=== PATIENT | male | born 1945 | race Caucasian/White ===

== ENCOUNTER 2016-06-02 16:26 | Inpatient (IN) | payer MEDICARE, OTHER ==
--- NOTE | ~2016-06-02 | HP ---
History And Physical [place] [id number] [facility] [place]. [address] NAME: MARINE VALDES JR : 49 STATUS : ADM IN [facility]#: [id number] AGE: 71 ADM/REG DATE : 06/02/16 MR#: [id number] REPORT SERV DATE: 06/03/16 DICTATED BY: ELLEN BECERRIL DATE: 06/02/16 REPORT STATUS : Draft TRANSCRIBED BY: MODTorey DATE: 06/02/16 DATE OF ADMISSION: 06/02/2016 REASON FOR ADMISSION: MRSA bacteremia stump wound infection. HISTORY OF PRESENT ILLNESS: Mr. Valdes is a 71-year-old male with bilateral [id number]-[id number] amputation and type 2 diabetes, status post hospitalization at [facility] beginning of 05/28/2016 for hip fracture for falling from his wheelchair. The patient underwent open reduction, internal fixation and did well; however, he is noted to have infected stump wound and blood cultures were positive for MRSA as well as wound cultures. The patient has been on intravenous antibiotics, but he was transferred here for infectious disease consultation. The patient actually denies any subjective fevers. He has fatigue and some hip pain, but no pain in his stumps, no pain anywhere else. No headache. No altered mental status. No chest or palpitations. No shortness of breath, coughing, or wheezing. Appetite has been okay without nausea or vomiting. No gastrointestinal or genitourinary complaints. He did have numbness in his legs prior to amputation. He has had diabetes for 23 years, but he says it has recently been under pretty good control. REVIEW OF SYSTEMS: Remainder of review of systems are negative. PAST MEDICAL HISTORY: As mentioned above, history of coronary artery disease. MEDICATIONS: Include Coreg, Bentyl, Levemir, nitroglycerin, Uroxatral, aspirin, Plavix, Cymbalta, Lunesta, Lyrica, and Ranexa. ALLERGIES: NO ALLERGIES. FAMILY HISTORY: Negative for diabetes. SOCIAL HISTORY: The patient has no tobacco, alcohol, or drug history. He lives alone. PHYSICAL EXAMINATION: VITAL SIGNS: Blood pressure 117/65, pulse 69, afebrile, and with good saturations. GENERAL: Comfortable white male, oriented x3. No apparent distress. HEENT: Pupils are equal and reactive to light. Extraocular movements are intact. No cranial nerve deficits. Moist mucous membranes. Normal oropharynx. NECK: Revealed no jugular distention carotid bruits, lymphadenopathy, or goiter. CARDIAC: Regular rate and rhythm. No murmurs, gallops, or rubs identified. LUNGS: Clear to auscultation bilaterally. Good excursion. ABDOMEN: Nondistended, nontender, obese. Bowel sounds normoactive. EXTREMITIES: No cyanosis, clubbing, or edema. He had bilateral BKA. He had open wounds in the left stump without purulent drainage but with some thin yellow exudate, and a small wound was also present on the right stump. There was no associated cellulitis, fluctuance, or warmth. NEUROLOGIC: He did have some thenar and adductor wasting of his hands with associated History And Physical [address] [address] NAME: MARINE VALDES JR : 49 STATUS : ADM IN [facility]#: [id number] AGE: 71 ADM/REG DATE : 06/02/16 MR#: [id number] REPORT SERV DATE: 06/03/16 DICTATED BY: ELLEN BECERRIL DATE: 06/02/16 REPORT STATUS : Draft TRANSCRIBED BY: LUKE DATE: 06/02/16 neuropathy in his fingers as well but normal strength proximally. PSYCHIATRIC: He is appropriate. LABORATORY DATA: Laboratory evaluation was not sent from [facility]. ASSESSMENT AND PLAN: 1. Methicillin-resistant staphylococcus aureus bacteremia after stump wound infection, certainly this is concerning for the possibility of infected hardware. We should rule out infective endocarditis. Resume vancomycin here for at least two weeks although possible six-week of therapy. Infectious Disease will be seeing this patient. A PICC line will be placed. Anticipate half-way Facility, particularly in light that he will not be able to have his prosthetic limbs replaced with the open wounds on his limbs. 2. Type 2 diabetes, unclear how well controlled this is. We will check an A1c and reinitiate his Levemir, but basal bolus dosing may be necessary. 3. History of coronary artery disease. Continue on Plavix, aspirin. Lipitor or lipid- lowering therapy is missing from his regimen. We will assess his lipid profile as well. STEVEN/LUKE Ellen Becerril M.D. / [id number] CC: Ellen Becerril M.D. UNKNOWN
--- NOTE | ~2016-06-02 | IDS ---
Interim Discharge Summary [facility] [address] [place]. [address] NAME: MARINE FUENTES JR : 49 STATUS : ADM IN [facility]#: [id number] AGE: 71 ADM/REG DATE : 06/02/16 MR#: [id number] REPORT SERV DATE: 06/07/16 DICTATED BY: JOEL SWAIN DATE: 06/07/16 REPORT STATUS : Draft TRANSCRIBED BY: LUKE DATE: 06/07/16 ADMISSION DATE: 06/02/2016 DISCHARGE DATE: REASON FOR ADMISSION: MRSA bacteremia, transfer from [facility]. HISTORY OF PRESENT ILLNESS: This is a 71-year-old male, who had come in to [facility] and found to have MRSA bacteremia, it was presumed to be from bacteremia from his stump wounds and infections as he has bilateral lower extremity below the knee amputations. However, he also found that he had infected wounds on his middle and ring finger of the right hand. DISCHARGE DIAGNOSES: 1. Methicillin-resistant Staphylococcus aureus bacteremia, possibly secondary to infected fingers. 2. Right middle and ring finger infection, status post I and D and resection and amputation of finger tips. 3. Diabetes type 2 with severe neuropathy. 4. Coronary artery disease and chronic congestive heart failure. 5. Hypertension. 6. Status post recent hip fracture repair. 7. History of bilateral lower extremity amputations with stump wounds present on admission. HOSPITAL COURSE: MRSA bacteremia. The patient was admitted and Infectious Disease was consulted. Dr. Mckeon will see the patient and consult would be made to hand specialist, Dr. Benton Sandoval, he would perform surgery on Mr. Fuentes, doing an I and D of the right middle and ring finger with partial tip amputation of the right ring finger due to concerns for osteomyelitis. The patient has been on IV vancomycin here at the hospital. Dr. Mckeon is following. There was not a culture for the fingers to verify that being the source of infection. Given the fact that is not definitive that absolutely the source of the infection, although it is likely there is a ANNE MARIE pending for tomorrow. Stump wounds. The patient also has bilateral lower extremity stump wounds present on admission. They do not appear infected. The patient will need a PICC line placed and outpatient IV antibiotics and he is wanting now to go home with home health to complete that. CURRENT MEDICATIONS: 1. Aspirin 81 mg p.o. daily. 2. Atorvastatin 80 mg p.o. daily. 3. Benazepril 10 mg p.o. daily. 4. Carvedilol 6.25 mg p.o. b.i.d. 5. Plavix 75 mg p.o. daily. 6. Duloxetine 60 mg p.o. b.i.d. 7. Enoxaparin 40 mg p.o. x300 subcu daily. Interim Discharge Summary [address] [place]. [address] NAME: MARINE FUENTES JR : 49 STATUS : ADM IN PAT#: [id number] AGE: 71 ADM/REG DATE : 06/02/16 MR#: [id number] REPORT SERV DATE: 06/07/16 DICTATED BY: JOEL SWAIN DATE: 06/07/16 REPORT STATUS : Draft TRANSCRIBED BY: LUKE DATE: 06/07/16 8. Fluticasone nasal spray. 9. NovoLog 5 units subcu before meals t.i.d. 10.Sliding scale insulin level 1. 11.Levemir 18 units subcu b.i.d. 12.Pregabalin 150 mg p.o. b.i.d. 13.Ranolazine 1000 mg p.o. b.i.d. 14.Carafate 1 g p.o. before meals and at bedtime. 15.Tamsulosin 0.4 mg p.o. daily. 16.Vancomycin 1 g IV q.12 hours. CURRENT PLAN: ANNE MARIE is pending. Follow up will need to be made on that and PICC line will need to be inserted and arrangements made for outpatient IV antibiotic. Case Management is working on this. The patient's care to be assumed by Dr. Mike Torres. ASAF/IRVINGL Joel Swain APN / [id number] CC: Gold Grover M.D. Benton Sandoval M.D. Valente Mckeon M.D. Francisco Torres, DO
--- NOTE | ~2016-06-02 | CN ---
Consultation Report [facility] [address] [place]. [address] NAME: MARINE FUENTES JR : 49 STATUS : ADM IN [facility]#: [id number] AGE: 71 ADM/REG DATE : 06/02/16 MR#: [id number] REPORT SERV DATE: 06/03/16 DICTATED BY: COLTEN SANDOVAL DATE: 06/03/16 REPORT STATUS : Draft TRANSCRIBED BY: MODL DATE: 06/03/16 ORTHOPEDIC HAND CONSULTATION DATE OF CONSULTATION: 06/03/2016 REASON FOR CONSULTATION: Right middle and ring finger infections. HISTORY OF PRESENT ILLNESS: Mr. Fuentes is a 71-year-old diabetic gentleman, admitted with MRSA bacteremia, actually transferred from [facility] with history of bilateral lower extremity amputations and recently had a hip fracture, was treated with ORIF by Dr. Gil. He was evaluated by ID and there was some concern regarding his fingertips. Per his own history, he says two months ago, he burned his middle and ring finger on a stove and due to the history of neuropathy has very little feeling in his hands and has been treating it with observation or at best, on wound care. Denies any other injuries or trauma to his hands. PAST MEDICAL HISTORY: As above and significant for coronary artery disease. ALLERGIES: NO KNOWN DRUG ALLERGIES. MEDICATIONS: Please see the list. REVIEW OF SYSTEMS: Negative except as above. PHYSICAL EXAMINATION: GENERAL: Patient is resting comfortably in a hospital bed. EXTREMITIES: Examination of his left upper extremity is unremarkable. No erythema, ecchymosis, swelling, or deformity. No tenderness, although light touch sensation is intact in his fingers. Mild claw posture about his hands consistent with a neuropathy, but he can extend them fairly well and flex. Examination of his right upper extremity, the upper arm, shoulder, elbow, and forearm are benign. Examination of his hand significantly clawed posture with more fixed contractures about the IP joints and very limited extension. He has a small abrasion on the radial aspect of the tip of his middle finger, does not appear to be deep. There is some scant serous drainage. Again, light sensation and tenderness essentially void due to the neuropathy. On the ring finger, he has a 1 x 1 cm open wound dorsally with exposed soft tissue. There was no gross purulence, but there is some serous drainage and again appears to be communicating with the deep tissues. The remainder of his digit is red and swollen. ASSESSMENT AND PLAN: This is a 71-year-old with right middle and ring finger amputations with history of diabetes and current history of methicillin-resistant Staphylococcus aureus bacteremia. Reviewed the diagnosis and treatment plan with the patient at this point. I feel the ring finger will require formal I and D with partial amputation and flap closure. Did discuss with them that at the time surgery should it reveal further infection or Consultation Report [place] [id number] [place]. [address] NAME: MARINE FUENTES JR : 49 STATUS : ADM IN PAT#: [id number] AGE: 71 ADM/REG DATE : 06/02/16 MR#: [id number] REPORT SERV DATE: 06/03/16 DICTATED BY: COLTEN SANDOVAL DATE: 06/03/16 REPORT STATUS : Draft TRANSCRIBED BY: LUKE DATE: 06/03/16 breakdown or significant osteomyelitis, it may require further amputation. Even at best, this may require further surgeries in the future especially given his medical comorbidities. We will also I and D the middle finger at the same time. I do not believe it requires much attention, however, discussed with him in detail regarding risks, benefits, and alternatives. Questions were answered to his satisfaction. Planned to do this at the next possible convenience, n.p.o. after midnight. The dressing was replaced, and we plan to do this tomorrow. RAMIRO/LUKE Colten Sandoval M.D. / [id number] CC: Gold Grover M.D.
--- NOTE | ~2016-06-02 | OP ---
Record Of Operation [facility] [address] [place]. [address] NAME: MARINE FUENTES JR : 49 STATUS : ADM IN PAT#: [id number] AGE: 71 ADM/REG DATE : 06/02/16 MR#: [id number] REPORT SERV DATE: 06/07/16 DICTATED BY: COLTEN JUSTICE DATE: 06/04/16 REPORT STATUS : Draft TRANSCRIBED BY: MODL DATE: 06/04/16 DATE OF PROCEDURE: 06/04/2016 PREOPERATIVE DIAGNOSIS: Right middle and ring finger infections. POSTOPERATIVE DIAGNOSIS: Right middle and ring finger infections. PROCEDURE: Irrigation and debridement of right middle and ring finger with partial tip amputation of the right ring finger. SURGEON: Colten Justice M.D. ANESTHESIA: MAC. COMPLICATIONS: None. ESTIMATED BLOOD LOSS: Minimal. INDICATIONS: Mr. Fuentes is a 71-year-old gentleman who burned his fingers two months ago, history of severe diabetic neuropathy, so he did not feel the injury and it progressed over time to an open draining wound with no coverage and exposed bone. I discussed with him regarding the nature of diagnosis and recommended tip amputation with I and D. Risks and benefits were discussed. DESCRIPTION OF PROCEDURE: The patient was identified in the preoperative area. Informed consent was performed and documented. Surgical site was signed. He was taken back to the operative suite and placed on the table in supine position. MAC anesthesia was administered. Attention was turned to his right upper extremity, it was prepped and draped in a normal sterile fashion. Time-out was performed and documented by . Antibiotics were given, up to date from the chart. Exsanguinated his upper arm and raised the tourniquet to 250 mmHg. I began by using a Adolphus removing the nonviable skin around the edges. The right middle finger essentially was of moderate abrasion and had some intact dermal layers, this was cleaned of any nonviable tissue and then cleansed. I turned attention to the ring finger with exposed bone with loss of the dorsal tissue. Given the extent of the bone and the appearance of the bone and performed a disarticulation at the PIP level with plan to flapping up the volar tissue. I sharply excised and debrided any nonviable skin, subcu or bony tissue using a #15 blade and curved iris scissors. After we fashioned our flap and removed the cartilage and shaped the head of P2 in anticipation for closure copiously irrigated, then I closed the flap with 4-0 Prolene, instilled 0.5% Marcaine plain, placed sterile dressing. Tourniquet was deflated. The patient tolerated the procedure well and he was taken to the recovery room in stable condition. DISCHARGE CONDITION: Satisfactory. DISCHARGE INSTRUCTIONS: The patient will return to the floor. Give IV antibiotics for his bacteremia, plan on keeping the wound wrapped up for the next few days and then we will Record Of [address] [place]. [address] NAME: MARINE FUENTES JR : 49 STATUS : ADM IN [facility]#: [id number] AGE: 71 ADM/REG DATE : 06/02/16 MR#: [id number] REPORT SERV DATE: 06/07/16 DICTATED BY: COLTEN JUSTICE DATE: 06/04/16 REPORT STATUS : Draft TRANSCRIBED BY: LUKE DATE: 06/04/16 check it, work on range of motion as tolerated. RAMIRO/LUKE Colten Justice M.D. / [id number] CC: Gold Grover M.D.
--- NOTE | ~2016-06-02 | TEE ---
Transesophageal Echocardiogram [facility] [address] [facility] [place]. [address] NAME: MARINE VALDES JR : 49 STATUS : ADM IN [facility]#: [id number] AGE: 71 ADM/REG DATE : 06/02/16 MR#: [id number] REPORT SERV DATE: 06/09/16 DICTATED BY: DATE: REPORT STATUS : Draft TRANSCRIBED BY: MODL DATE: 06/09/16 CHIEF COMPLAINT/REASON FOR STUDY: Bacteremia. After obtaining informed consent, Anesthesia administered IV propofol to achieve adequate conscious sedation. The transesophageal probe was easily inserted without complication. Then, 2D echocardiographic windows were obtained including color and spectral Doppler assessment. CHAMBERS: 1. The left ventricle appeared normal in size with normal wall thickness. There was more focal inferior basilar and anterior apical hypokinesis. Estimated visual ejection fraction is 40%. 2. The right ventricle was grossly normal in size and systolic function. 3. The left atrium is dilated in size. 4. The right atrium appeared mildly dilated in size. 5. The left atrial appendage was interrogated at multiple levels and depths. There was no evidence of left atrial appendage thrombus at the time of ANNE MARIE. Doppler velocities within the left atrial appendage measured between 24 and 25 cm/sec. 6. The mitral valve was normal with preserved leaflet motion. There was no evidence of valvular vegetations. There was mild mitral valve regurgitation seen with color and spectral Doppler assessment. 7. The tricuspid valve appeared normal with preserved leaflet motion. There was no evidence of tricuspid regurgitation or significant stenosis seen with color Doppler assessment. 8. Mitral valve appeared normal and trileaflet. There was small fibrinous echo densities at the aortic valve leaflet tips best seen in the long-axis view. These were consistent with Lambl's excrescence and not clearly consistent with valvular vegetations. 9. The pulmonary valve was well visualized without evidence of significant pulmonary valvular regurgitation. There was no evidence of vegetations. 10.The thoracic aorta was normal in size with moderate atherosclerotic plaque visualized. 11.The pericardium was normal without pericardial effusion. 12.The interatrial septum was well visualized and normal without evidence of patent foramen ovale or atrial septal defect. 13.There was no evidence of pulmonary vein flow reversal. IMPRESSION: 1. Moderately decreased left ventricular systolic function with a visually estimated ejection fraction of 40%. 2. No evidence of infective endocarditis. 3. 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 RALPH/LUKE Shawanda Han Transesophageal Echocardiogram [address] [address] NAME: MARINE VALDES JR : 49 STATUS : ADM IN PAT#: [id number] AGE: 71 ADM/REG DATE : 06/02/16 MR#: [id number] REPORT SERV DATE: 06/09/16 DICTATED BY: DATE: REPORT STATUS : Draft TRANSCRIBED BY: LUKE DATE: 06/09/16 Jeremias Tsai / [id number] CC: Francisco Torres DO
--- NOTE | ~2016-06-02 | DS ---
Discharge Summary [facility] [address] [place]. [address] NAME: MARINE VALDES JR : 49 STATUS : DIS IN PAT#: [id number] AGE: 71 ADM/REG DATE : 06/02/16 MR#: [id number] REPORT SERV DATE: 06/11/16 DICTATED BY: SHEYLA CAI DATE: 06/10/16 REPORT STATUS : Draft TRANSCRIBED BY: MODTorey DATE: 06/10/16 ADMISSION DATE: 06/02/2016 DISCHARGE DATE: 06/10/2016 HOSPITAL COURSE: This is a 71-year-old pleasant male. He has known past medical history of CAD, recent hip fracture falling from wheelchair on 05/28/2016, went to [facility], had open reduction and internal fixation. He was noted to have an infected stump wound. Blood culture positive for MRSA as well as a wound culture, known history of diabetes, bilateral [id number]-tywh amputations, possibly due to diabetic complications in the past. The patient was on IV antibiotics at [facility], was transferred as a direct admission with ID consultation request. As a result, the patient was seen by Dr. Mckeon, was noted to have small wounds on both thumbs. Apparently, he had burnt his fingers a few weeks ago on his right hand, noted to have bilateral flexion contractures. The patient as a result regarding his MRSA bacteremia had seen to be negative from the 05/06/2016, but then became positive on 05/29/2016, then leg ulcer had 3+ MRSA and 1+ Proteus. The patient as a result, regarding his right middle finger cellulitis with possible abscesses seen by Dr. Sandoval. I and D, partial amputation, and flap closure, this was done on 06/04/2016. He had an I and D to the right middle and ring finger, partial tip amputation of right ring finger. The patient's bacteremia cleared. Please see prior discharge summary done by Dr. Grover's team with Joel Lee. The patient in summary had a TTE and then a ANNE MARIE to rule out infective endocarditis. EF found to be 40%. Did not find any vegetation, as a result likely source was from his finger, more likely than his stump. True culture was not done, but likely source of infection was removed. When I took over the patient he had a blood pressure of 86, this is relative hypoglycemia at 80, given amp of D50, did much better with a 0.5 L of normal saline bolus. He had a pyuria develop with the Pseudomonas 50,000 units. Gave just 1 dose of tobra per ID, seemed to be asymptomatic. The procal would be negative, but given his clinical change 2 days ago wanted to treat. The patient additionally has been reducing his Levemir, likely more compliant with a diabetic diet while being here. The patient is on backbone therapy regarding his heart failure 40%, ischemic cardiomyopathy, and LVEF of 40%. DISCHARGE MEDICATIONS: Aspirin 81 p.o. daily, Lipitor 80 p.o. daily, benazepril 2.5 p.o. daily, carvedilol 3.125 p.o. b.i.d., Plavix 75 p.o. daily, vancomycin 1.5 g daily for three weeks then discontinue, Cymbalta 60 p.o. b.i.d., Flonase nasal spray, NovoLog level 1 sliding scale as well as having NovoLog 5 units subcu t.i.d. before meals. Lyrica 150 p.o. b.i.d. for diabetic neuropathy. Ranexa 1 g p.o. b.i.d., Florastor one capsule p.o. b.i.d., Carafate, Xenaderm ointment, nystatin powder, has some mild perineal candidiasis, Levemir 10 units subcu daily as well as having Lasix 20 p.o. daily, given his history of heart failure, tramadol 100 p.o. b.i.d., p.r.n., and Ativan 1 mg p.o. b.i.d. p.r.n. FOLLOWUP: Follow up with PCP in 2 weeks. Follow up with Dr. Mckeon as prescribed. Follow up with Dr. Sandoval as prescribed. Wound care was ordered here to do as an outpatient. Discharged to facility via ambulance today. DISCHARGE DIAGNOSES: Methicillin-resistant Staphylococcus aureus bacteremia, likely source Discharge Summary [address] [place]. [address] NAME: MARINE VALDES KENDRICK FARRIS : 49 STATUS : DIS IN PAT#: [id number] AGE: 71 ADM/REG DATE : 06/02/16 MR#: [id number] REPORT SERV DATE: 06/11/16 DICTATED BY: SHEYLA CAI DATE: 06/10/16 REPORT STATUS : Draft TRANSCRIBED BY: MODTorey DATE: 06/10/16 is infected stump as well as his right middle finger, more likely the middle finger with amputation of the right ring finger. Source is likely removed. Gave a longer duration given hardware instrumentation recently placed. Insulin-dependent diabetes, hypertension, coronary artery disease, chronic systolic heart failure, not decompensated, encephalopathy, relative hypoglycemia. All questions were answered, it took well over 30 minutes to do. MARCELLA/LUKE Sheyla Cai DO / [id number] CC: Sheyla Cai DO
--- NOTE | ~2016-06-02 | CN ---
Consultation Report [facility] [address] [place]. [address] NAME: MARINE VALDES JR : 49 STATUS : ADM IN PAT#: [id number] AGE: 71 ADM/REG DATE : 06/02/16 MR#: [id number] REPORT SERV DATE: 06/03/16 DICTATED BY: VALENTE ROSENBERG DATE: 06/03/16 REPORT STATUS : Draft TRANSCRIBED BY: MODL DATE: 06/03/16 INFECTIOUS DISEASE CONSULT DATE OF CONSULTATION: REASON FOR CONSULT: MRSA bacteremia. HISTORY OF PRESENT ILLNESS: This is a 71-year-old white male with diabetes, coronary artery disease, bilateral below-knee amputation who requested to be transferred from [facility] to [facility]. He lives by himself with the help from a home health staff. He had right below-knee amputation ten years ago after an infection. He had a left below-knee amputation I think a year or year and half ago. He reports having falls and injuries to his thumb, so he has small wounds on both thumbs. Recently, he might have received an antibiotic from his PCP. It is not clear if this was from the stump wounds or right hand wounds. Apparently, he burnt his fingers a few weeks ago on the right hand. He has bilateral flexion contractures and he burnt the tips of both index and middle finger. Apparently, he has some neuropathy who did not notice anything. At some point, it sounds like he formed a scab over the middle finger and then a wound. His PCP offered some wound care but at some point, maybe within the last week he developed swelling and redness of the middle finger. Maybe the antibiotic was given for this. However, last weekend, he bumped over a curve and fell off his wheelchair and suffered a left hip fracture. They do not have the details, but it sounds like the ambulance took him to [facility] where he had a nail fixation of the left hip. We do not have any records from [place], but at some point, he developed positive blood cultures for MRSA. I requested culture results from [facility] [place] and as far as I can tell, he had negative blood cultures on 05/06/2016 and 05/11/2016 and then I see a positive blood culture on 05/29/2016 for MRSA and a positive blood culture on 06/01/2016 for MRSA. Then, there is a negative blood culture on 06/02/2016. There is a left leg ulcer culture growing 3+ MRSA and 1+ Proteus. I do not know how was this treated. He was recommended some surgical consult, I guess for the right hand wound, but he wanted to be transferred to [facility]. He came here last night and was given vancomycin. More blood cultures were collected here. Lab work showed a creatinine of 0.6, glucose 290, alkaline phosphatase 434, WBC 8, hemoglobin 10. CRP and sedimentation rate are very elevated. REVIEW OF SYSTEMS: The patient reported no fever or chills. No acute shortness of breath. No dysuria. No difficulty urinating. He had several soft stools in the last few days that actually felt like he was constipated initially, but then he would expel the stools and it would be soft. No vomiting. PAST MEDICAL HISTORY: As I mentioned above. He tells me he has no hypertension. ALLERGIES: NONE. Consultation Report [address] [place]. [address] NAME: MARINE VALDES : 49 STATUS : ADM IN [facility]#: [id number] AGE: 71 ADM/REG DATE : 06/02/16 MR#: [id number] REPORT SERV DATE: 06/03/16 DICTATED BY: VALENTE ROSENBERG DATE: 06/03/16 REPORT STATUS : Draft TRANSCRIBED BY: LUKE DATE: 06/03/16 FAMILY HISTORY: Not obtained. SOCIAL HISTORY: Lives by himself with some home health help. He does not smoke. He is disabled. MEDICATIONS ON ADMISSION: According to the records from [facility] he is on aspirin, Lyrica, S-zopiclone, alfuzosin, Plavix, rosuvastatin, duloxetine, and ranolazine. PHYSICAL EXAMINATION: GENERAL: Done in presence of his nurse, he is alert and awake. He is a poor historian. No oral thrush. LUNGS: Seem clear to auscultation. HEART: Distant sounds. Regular rhythm. No murmurs. ABDOMEN: Obese. Nontender to palpation. MUSCULOSKELETAL: Skin is wet over his buttocks. Right hand with 2nd and 3rd fingers tip wounds. Middle finger with diffuse erythema and swelling. Infrapatellar areas with multiple small wounds bilaterally that do not look infected and a larger wound on the left side about 3 x 3 cm that has a pink base and does not look infected. ASSESSMENT AND PLAN: 1. Reported MRSA bacteremia. 2. Right middle finger cellulitis and open wound. 3. Bilateral BKA with multiple infrapatellar wounds that do not look infected. 4. Bilateral hand flexor contractures and peripheral neuropathy that make his use of hands difficult. 5. Uncontrolled diabetes mellitus. We are in the process of receiving culture results from [facility] [place]. Echocardiogram was ordered. I would like to consult Hand Surgery to re-evaluate, especially the middle finger since he might have fingertip osteomyelitis. We will hold off PICC line until we make sure the blood sterilize. Request records from [facility] [place] because I see he had blood cultures done even back at the end of April and beginning of May and I am not sure for what reason. According to the patient, he had no fever, has not been sick until he came to [facility] [place]. SHANICE/LUKE Valente Rosenberg M.D. / [id number] CC: Consultation Report [address] [place]. [address] NAME: MARINE VALDES JR : 49 STATUS : ADM IN [facility]#: [id number] AGE: 71 ADM/REG DATE : 06/02/16 MR#: [id number] REPORT SERV DATE: 06/03/16 DICTATED BY: VALENTE ROSENBERG DATE: 06/03/16 REPORT STATUS : Draft TRANSCRIBED BY: MODL DATE: 06/03/16 Gold Grover M.D.
[~2016-06-02 16:26] MED LIST: *UNABLE1; ADVAIR250 INH; ASA5GR PO; ASAB PO; ATV1 PO; COREG3 PO; COREG6 PO; CRESTOR20 MG PO; CRESTOR40 MG PO; CYMBALTA PO; CYMBALTA30 PO; CYMBALTA60 PO; DUREZOL0.05 % OP; EYE ITCH RELIEF OP; FLONASE NAS; GLUCPH PO; HUMAPUMP SC; HYDROCHLOROT25 MG PO; L40 PO; LEVEMIR SC; LUNESTA3 MG PO; LYRICA75 PO; NABUMETONE750 MG PO; NOVOLOG SC; NOVOPEN SC; OMNIPRED1 % OPH; PLAVIX PO; QVAR 80 MCG80 MCG INH; RANEXA1000 MG PO; SYMLINPEN 601000 MCG SC; UROXATRAL PO; VIGAMOX OPH; ZANAFLEX 4 MG TA4 MG PO; [UNRECOGNIZED DRUG - REMARK] OP
[2016-06-02 21:05] LABS: BASOPHILS 0.2 %; BASOPHILS ABSOLUTE 0.02 10/3/uL (0.0-0.16); EOSINOPHILS ABSOLUTE 0.57 10/3/uL (0.0-0.53); HEMATOCRIT 31.3 % (40.0-51.0); HEMOGLOBIN 10.6 g/dL (13.6-17.8); IMMATURE GRANULOCYTES 0.2 %; IMMATURE GRANULOCYTES ABSOLUTE 0.02 10/3/uL (0.0-0.11); LYMPHOCYTES 14.2 %; LYMPHOCYTES ABSOLUTE 1.15 10/3/uL (0.67-4.30); MEAN CORPUS HGB CONC 33.9 g/dL (32.0-36.0); MEAN CORPUSCULAR HEMOGLOB 28.9 pg (26.0-34.0); MEAN CORPUSCULAR VOLUME 85.3 fL (80-100); MEAN PLATELET VOLUME 9.8 fL (9.2-13.0); MONOCYTES 10.1 %; MONOCYTES ABSOLUTE 0.82 10/3/uL (0.21-1.20); NEUTROPHILS 68.3 %; NEUTROPHILS ABSOLUTE 5.54 10/3/uL (2.02-8.40); PLATELET COUNT 259 10/3/uL (150-400); RBC DISTRIBUTION WIDTH 13.8 % (12.0-16.0); RED CELL COUNT 3.67 10/6/uL (4.7-6.1); WHITE BLOOD CELLS 8.1 10/3/uL (4.5-10.5)
[2016-06-02 21:08] LABS: MANUAL DIFF NO %
[2016-06-02 21:22] LABS: A/G RATIO 0.4 (0.7-1.9); ALBUMIN 1.9 G/DL (3.5-5.0); ALKALINE PHOSPHATASE 434 U/L (45-117); BUN (BLOOD UREA NITROGEN) 17 MG/DL (6-23); CALCIUM, SERUM 8.4 MG/DL (8.5-10.4); CHLORIDE, SERUM 104 MMOL/L (96-112); CHOL/HDL RATIO(NOT ORDER) 6.7 (0-5); CHOLESTEROL 173 MG/DL (< 200); CO2 (CARBON DIOXIDE) 27 MMOL/L (24-34); CREATININE 0.65 MG/DL (0.70-1.30); GFR AFRICAN AMERICAN 115 ML/MIN (>=60); GFR NON AFRICAN AMERICAN 99 ML/MIN (>=60); GLOBULIN 4.3 G/DL (2.5-4.1); GLUCOSE, SERUM 297 MG/DL (60-99); HDL CHOLESTEROL 26 MG/DL (> 39); LDL CHOLESTEROL 117 MG/DL (< 130); NON-HDL CHOLESTEROL 147 MG/DL (< 160); POTASSIUM, SERUM 4.1 MMOL/L (3.5-5.3); SGOT(AST) 21 U/L (5-40); SGPT(ALT) 63 U/L (5-65); SODIUM, SERUM 141 MMOL/L (135-148); TOTAL BILIRUBIN 0.7 MG/DL (0-1.2); TOTAL PROTEIN 6.2 G/DL (6.0-8.5); TRIGLYCERIDE 154 MG/DL (< 150)
[2016-06-02 21:47] LABS: SED RATE 97 MM/HR (0-15)
[2016-06-04 10:51] LABS: BUN (BLOOD UREA NITROGEN) 14 MG/DL (6-23); CHLORIDE, SERUM 116 MMOL/L (96-112); GFR AFRICAN AMERICAN 140 ML/MIN (>=60); GFR NON AFRICAN AMERICAN 121 ML/MIN (>=60); SODIUM, SERUM 144 MMOL/L (135-148)
[2016-06-04 10:52] LABS: CALCIUM, SERUM 5.5 MG/DL (8.5-10.4); CO2 (CARBON DIOXIDE) 20 MMOL/L (24-34); GLUCOSE, SERUM 77 MG/DL (60-99); POTASSIUM, SERUM 3.1 MMOL/L (3.5-5.3)
[2016-06-04] MEDS ORDERED: *UNABLE1 (18:38)
[2016-06-05 06:20] LABS: HEMATOCRIT 29.6 % (40.0-51.0); HEMOGLOBIN 9.6 g/dL (13.6-17.8); MEAN CORPUS HGB CONC 32.4 g/dL (32.0-36.0); MEAN CORPUSCULAR HEMOGLOB 28.3 pg (26.0-34.0); MEAN CORPUSCULAR VOLUME 87.3 fL (80-100); MEAN PLATELET VOLUME 9.6 fL (9.2-13.0); PLATELET COUNT 299 10/3/uL (150-400); RBC DISTRIBUTION WIDTH 13.9 % (12.0-16.0); RED CELL COUNT 3.39 10/6/uL (4.7-6.1)
[2016-06-05 06:28] LABS: WHITE BLOOD CELLS 12.6 10/3/uL (4.5-10.5)
[2016-06-05 06:29] LABS: MANUAL DIFF YES %
[2016-06-05 07:16] LABS: EOSINOPHILS 4 %; IMMATURE GRANS ABSOLUTE (CALC) 0.25 10/3/uL (0.0-0.11); LYMPHOCYTES 11 %; LYMPHOCYTES ABSOLUTE (CALC) 1.39 10/3/uL (0.67-4.30); METAMYELOCYTES 2 %; MONOCYTES 6 %; MONOCYTES ABSOLUTE (CALC) 0.76 10/3/uL (0.21-1.20); PLATELET ESTIMATE ADQ (ADEQUATE); RBC MORPHOLOGY NORM (NORMAL); SEGMENTED NEUTROPHIL (0) 77 %; TOTAL NUCLEATED CELLS 100
[2016-06-05 13:10] LABS: BUN (BLOOD UREA NITROGEN) 17 MG/DL (6-23); CREATININE 0.84 MG/DL (0.70-1.30); GFR AFRICAN AMERICAN 104 ML/MIN (>=60); GFR NON AFRICAN AMERICAN 89 ML/MIN (>=60); SODIUM, SERUM 141 MMOL/L (135-148)
[2016-06-05 13:11] LABS: CALCIUM, SERUM 8.2 MG/DL (8.5-10.4); CHLORIDE, SERUM 106 MMOL/L (96-112); CO2 (CARBON DIOXIDE) 28 MMOL/L (24-34); GLUCOSE, SERUM 203 MG/DL (60-99); POTASSIUM, SERUM 4.3 MMOL/L (3.5-5.3)
[2016-06-05] MEDS ORDERED: TOUJEO (15:36)
[2016-06-05] MEDS ORDERED: FLOMAX4 PO (15:37)
[2016-06-05] MEDS ORDERED: ATV1 PO (15:37)
[2016-06-05] MEDS ORDERED: ULTRAM ER100 MG PO (15:38)
[2016-06-05] MEDS ORDERED: LYRICA150 MG PO (15:38)
[2016-06-05] MEDS ORDERED: CYMBALTA60 PO (15:40)
[2016-06-05] MEDS ORDERED: RANEXA1000 MG PO (15:40)
[2016-06-05] MEDS ORDERED: PLAVIX PO (15:41)
[2016-06-05] MEDS ORDERED: L40 PO (15:41)
[2016-06-05] MEDS ORDERED: ASA5GR PO (15:42)
[2016-06-05] MEDS ORDERED: CRESTOR40 MG PO (15:42)
[2016-06-05] MEDS ORDERED: COREG3 PO (15:42)
[2016-06-05] MEDS ORDERED: FLONASE NAS (15:43)
[2016-06-05 16:54] LABS: ASCORBIC ACID (UR NOT ORDER) NEG (NEG); BILIRUBIN, URINE NEGATIVE (NEG); KETONE, URINE NEGATIVE (NEG); LEUKOCYTE ESTERASE(NOT OR LARGE (NEG); WBC (NOT ORDERED) (RFLEX) 116 (0-5)
[2016-06-05 17:17] LABS: CREATININE (RANDOM URINE) 50.8 MG/DL; MICROALBUMIN, RANDOM URINE 3.2 MG/DL
[2016-06-06 07:32] LABS: BUN (BLOOD UREA NITROGEN) 19 MG/DL (6-23); CALCIUM, SERUM 8.1 MG/DL (8.5-10.4); CHLORIDE, SERUM 104 MMOL/L (96-112); CO2 (CARBON DIOXIDE) 25 MMOL/L (24-34); CREATININE 0.83 MG/DL (0.70-1.30); GFR AFRICAN AMERICAN 104 ML/MIN (>=60); GFR NON AFRICAN AMERICAN 90 ML/MIN (>=60); POTASSIUM, SERUM 4.6 MMOL/L (3.5-5.3); SODIUM, SERUM 136 MMOL/L (135-148)
[2016-06-06 07:35] LABS: GLUCOSE, SERUM 114 MG/DL (60-99)
[2016-06-06 11:29] LABS: BASOPHILS 0.2 %; BASOPHILS ABSOLUTE 0.03 10/3/uL (0.0-0.16); EOSINOPHILS 4.3 %; EOSINOPHILS ABSOLUTE 0.53 10/3/uL (0.0-0.53); HEMATOCRIT 31.4 % (40.0-51.0); HEMOGLOBIN 10.4 g/dL (13.6-17.8); IMMATURE GRANULOCYTES 1.1 %; IMMATURE GRANULOCYTES ABSOLUTE 0.13 10/3/uL (0.0-0.11); LYMPHOCYTES 17.3 %; LYMPHOCYTES ABSOLUTE 2.14 10/3/uL (0.67-4.30); MEAN CORPUS HGB CONC 33.1 g/dL (32.0-36.0); MEAN CORPUSCULAR HEMOGLOB 28.6 pg (26.0-34.0); MEAN CORPUSCULAR VOLUME 86.3 fL (80-100); MEAN PLATELET VOLUME 9.5 fL (9.2-13.0); MONOCYTES 8.3 %; MONOCYTES ABSOLUTE 1.02 10/3/uL (0.21-1.20); NEUTROPHILS 68.8 %; NEUTROPHILS ABSOLUTE 8.51 10/3/uL (2.02-8.40); RBC DISTRIBUTION WIDTH 13.8 % (12.0-16.0); RED CELL COUNT 3.64 10/6/uL (4.7-6.1); WHITE BLOOD CELLS 12.4 10/3/uL (4.5-10.5)
[2016-06-06 11:30] LABS: MANUAL DIFF NO %; PLATELET COUNT 412 10/3/uL (150-400)
[2016-06-07 05:00] LABS: BASOPHILS 0.4 %; BASOPHILS ABSOLUTE 0.05 10/3/uL (0.0-0.16); EOSINOPHILS 5.2 %; EOSINOPHILS ABSOLUTE 0.66 10/3/uL (0.0-0.53); HEMOGLOBIN 9.4 g/dL (13.6-17.8); IMMATURE GRANULOCYTES 0.9 %; IMMATURE GRANULOCYTES ABSOLUTE 0.11 10/3/uL (0.0-0.11); LYMPHOCYTES 23.7 %; LYMPHOCYTES ABSOLUTE 3.02 10/3/uL (0.67-4.30); MEAN CORPUS HGB CONC 33.7 g/dL (32.0-36.0); MEAN CORPUSCULAR VOLUME 86.1 fL (80-100); MEAN PLATELET VOLUME 9.2 fL (9.2-13.0); MONOCYTES 10.4 %; MONOCYTES ABSOLUTE 1.32 10/3/uL (0.21-1.20); NEUTROPHILS 59.4 %; NEUTROPHILS ABSOLUTE 7.59 10/3/uL (2.02-8.40); PLATELET COUNT 428 10/3/uL (150-400); RBC DISTRIBUTION WIDTH 13.9 % (12.0-16.0); RED CELL COUNT 3.24 10/6/uL (4.7-6.1); WHITE BLOOD CELLS 12.8 10/3/uL (4.5-10.5)
[2016-06-07 05:01] LABS: HEMATOCRIT 27.9 % (40.0-51.0); MANUAL DIFF NO %
[2016-06-08 07:22] LABS: BASOPHILS 0.3 %; BASOPHILS ABSOLUTE 0.04 10/3/uL (0.0-0.16); EOSINOPHILS 4.9 %; EOSINOPHILS ABSOLUTE 0.67 10/3/uL (0.0-0.53); HEMATOCRIT 29.7 % (40.0-51.0); IMMATURE GRANULOCYTES 0.5 %; IMMATURE GRANULOCYTES ABSOLUTE 0.07 10/3/uL (0.0-0.11); LYMPHOCYTES 17.5 %; LYMPHOCYTES ABSOLUTE 2.38 10/3/uL (0.67-4.30); MEAN CORPUS HGB CONC 33.7 g/dL (32.0-36.0); MEAN CORPUSCULAR HEMOGLOB 29.2 pg (26.0-34.0); MEAN CORPUSCULAR VOLUME 86.6 fL (80-100); MEAN PLATELET VOLUME 9.2 fL (9.2-13.0); MONOCYTES 8.4 %; MONOCYTES ABSOLUTE 1.15 10/3/uL (0.21-1.20); NEUTROPHILS 68.4 %; PLATELET COUNT 394 10/3/uL (150-400); RED CELL COUNT 3.43 10/6/uL (4.7-6.1); WHITE BLOOD CELLS 13.6 10/3/uL (4.5-10.5)
[2016-06-08 07:23] LABS: MANUAL DIFF NO %
[2016-06-08 07:34] LABS: BUN (BLOOD UREA NITROGEN) 22 MG/DL (6-23); CALCIUM, SERUM 8.3 MG/DL (8.5-10.4); CHLORIDE, SERUM 107 MMOL/L (96-112); CO2 (CARBON DIOXIDE) 29 MMOL/L (24-34); CREATININE 0.83 MG/DL (0.70-1.30); GFR AFRICAN AMERICAN 104 ML/MIN (>=60); GFR NON AFRICAN AMERICAN 90 ML/MIN (>=60); GLUCOSE, SERUM 83 MG/DL (60-99); POTASSIUM, SERUM 4.4 MMOL/L (3.5-5.3); SODIUM, SERUM 139 MMOL/L (135-148)
[2016-06-08 11:43] LABS: VANCOMYCIN TROUGH 24.4 MCG/ML (10.0-20.0)
[2016-06-08 11:44] LABS: FOLATE 11.7 NG/ML (>5.2)
[2016-06-08 12:37] LABS: FOLATE 11.6 NG/ML (>5.2)
[2016-06-08 12:41] LABS: ASCORBIC ACID (UR NOT ORDER) NEG (NEG); BILIRUBIN, URINE NEGATIVE (NEG); KETONE, URINE NEGATIVE (NEG); LEUKOCYTE ESTERASE(NOT OR LARGE (NEG); WBC (NOT ORDERED) (RFLEX) 91 (0-5)
[2016-06-08 12:59] LABS: PROCALCITONIN 0.08 ng/mL (<0.5)
[2016-06-08 13:00] LABS: PROCALCITONIN <0.05 ng/mL (<0.5)
[2016-06-09 05:31] LABS: BASOPHILS 0.3 %; BASOPHILS ABSOLUTE 0.03 10/3/uL (0.0-0.16); EOSINOPHILS 4.1 %; EOSINOPHILS ABSOLUTE 0.47 10/3/uL (0.0-0.53); HEMATOCRIT 28.6 % (40.0-51.0); HEMOGLOBIN 9.5 g/dL (13.6-17.8); IMMATURE GRANULOCYTES 0.5 %; IMMATURE GRANULOCYTES ABSOLUTE 0.06 10/3/uL (0.0-0.11); LYMPHOCYTES 23.1 %; LYMPHOCYTES ABSOLUTE 2.63 10/3/uL (0.67-4.30); MEAN CORPUS HGB CONC 33.2 g/dL (32.0-36.0); MEAN CORPUSCULAR HEMOGLOB 28.9 pg (26.0-34.0); MEAN CORPUSCULAR VOLUME 86.9 fL (80-100); MEAN PLATELET VOLUME 9.2 fL (9.2-13.0); MONOCYTES 8.7 %; MONOCYTES ABSOLUTE 0.99 10/3/uL (0.21-1.20); NEUTROPHILS 63.3 %; NEUTROPHILS ABSOLUTE 7.19 10/3/uL (2.02-8.40); PLATELET COUNT 385 10/3/uL (150-400); RBC DISTRIBUTION WIDTH 13.8 % (12.0-16.0); RED CELL COUNT 3.29 10/6/uL (4.7-6.1); WHITE BLOOD CELLS 11.4 10/3/uL (4.5-10.5)
[2016-06-09 05:32] LABS: MANUAL DIFF NO %
[2016-06-09 05:43] LABS: BUN (BLOOD UREA NITROGEN) 24 MG/DL (6-23); CALCIUM, SERUM 8.2 MG/DL (8.5-10.4); CHLORIDE, SERUM 107 MMOL/L (96-112); CREATININE 1.02 MG/DL (0.70-1.30); GFR AFRICAN AMERICAN 87 ML/MIN (>=60); GFR NON AFRICAN AMERICAN 75 ML/MIN (>=60); POTASSIUM, SERUM 4.6 MMOL/L (3.5-5.3); SODIUM, SERUM 139 MMOL/L (135-148)
[2016-06-09 05:44] LABS: CO2 (CARBON DIOXIDE) 24 MMOL/L (24-34); GLUCOSE, SERUM 137 MG/DL (60-99)
[2016-06-10 05:59] LABS: CALCIUM, SERUM 8.6 MG/DL (8.5-10.4); CHLORIDE, SERUM 108 MMOL/L (96-112); CO2 (CARBON DIOXIDE) 21 MMOL/L (24-34); CREATININE 0.82 MG/DL (0.70-1.30); GFR AFRICAN AMERICAN 105 ML/MIN (>=60); GFR NON AFRICAN AMERICAN 90 ML/MIN (>=60); SODIUM, SERUM 138 MMOL/L (135-148); VANCOMYCIN TROUGH 14.9 MCG/ML (10.0-20.0)
[2016-06-10 06:00] LABS: HEMATOCRIT 30.6 % (40.0-51.0); HEMOGLOBIN 10.3 g/dL (13.6-17.8); MEAN CORPUS HGB CONC 33.7 g/dL (32.0-36.0); MEAN CORPUSCULAR HEMOGLOB 29.2 pg (26.0-34.0); MEAN CORPUSCULAR VOLUME 86.7 fL (80-100); MEAN PLATELET VOLUME 9.3 fL (9.2-13.0); PLATELET COUNT 373 10/3/uL (150-400); RBC DISTRIBUTION WIDTH 13.9 % (12.0-16.0); RED CELL COUNT 3.53 10/6/uL (4.7-6.1); WHITE BLOOD CELLS 8.6 10/3/uL (4.5-10.5)
[2016-06-10 06:02] LABS: BUN (BLOOD UREA NITROGEN) 17 MG/DL (6-23); GLUCOSE, SERUM 209 MG/DL (60-99)
[2016-06-10 06:03] LABS: MANUAL DIFF YES %
[2016-06-10 07:38] LABS: BAND NEUTROPHILS 2 %; BASOPHILS 1 %; BASOPHILS ABSOLUTE (CALC) 0.09 10/3/uL (0.0-0.16); EOSINOPHILS 1 %; EOSINOPHILS ABSOLUTE (CALC) 0.09 10/3/uL (0.0-0.53); LYMPHOCYTES 25 %; LYMPHOCYTES ABSOLUTE (CALC) 2.15 10/3/uL (0.67-4.30); MONOCYTES 6 %; MONOCYTES ABSOLUTE (CALC) 0.52 10/3/uL (0.21-1.20); NEUTROPHILS ABSOLUTE (CALC) 5.76 10/3/uL (2.02-8.40); PLATELET ESTIMATE ADQ (ADEQUATE); RBC MORPHOLOGY NORM (NORMAL); SEGMENTED NEUTROPHIL (0) 65 %; TOTAL NUCLEATED CELLS 100
[2016-09-29] MEDS ORDERED: LUNESTA3 MG PO (19:03)
[2016-09-29] MEDS ORDERED: *UNABLE1 (20:27)
[2016-09-30] MEDS ORDERED: ASAB PO (09:11)
[2016-09-30] MEDS ORDERED: LOTE5 PO (09:12)
[2016-09-30] MEDS ORDERED: LIPITOR80 MG PO (09:12)
[2016-09-30] MEDS ORDERED: FLONASE NAS (09:13)
[2016-09-30] MEDS ORDERED: NOVOLOG SC ×2 (09:14)
[2016-09-30] MEDS ORDERED: LACTOBACILLUS ACIDOPHILUS PO (09:16)
[2016-09-30] MEDS ORDERED: SUCR PO (09:16)
[2016-09-30] MEDS ORDERED: NYSTATPOW TOP (09:17)
[2016-09-30] MEDS ORDERED: LEVEMIR SC (09:17)
[2016-09-30] MEDS ORDERED: DSS PO (09:19)
[2016-09-30] MEDS ORDERED: MIRALAX POWDER1 PKT PO (09:19)
[2016-09-30] MEDS ORDERED: THERGRANM PO (09:20)
[2016-09-30] MEDS ORDERED: [UNRECOGNIZED DRUG - REMARK] (09:28)
[2016-10-06] MEDS ORDERED: TOUJEO PO (12:21)
[2016-10-06] MEDS ORDERED: LEVEMIR SC ×2 (12:24→12:25)
[2016-10-26] MEDS ORDERED: LIPITOR80 MG PO (16:44)
[2016-10-26] MEDS ORDERED: COREG3 PO (16:46)
[2016-10-26] MEDS ORDERED: PLAVIX PO (16:46)
[2016-10-26] MEDS ORDERED: FLONASE NAS (16:47)
[2016-10-26] MEDS ORDERED: CYMBALTA60 PO (16:47)
[2016-10-26] MEDS ORDERED: LYRICA150 MG PO (16:48)
[2016-10-26] MEDS ORDERED: RANEXA1000 MG PO (16:48)
[2016-10-26] MEDS ORDERED: L40 PO (16:48)
[2016-10-26] MEDS ORDERED: MIRALAX POWDER1 PKT PO (16:49)
[2016-10-26] MEDS ORDERED: FLOMAX4 PO (16:49)
[2016-10-26] MEDS ORDERED: ACIDOPHILU2 PO (16:50)
[2016-10-26] MEDS ORDERED: ASAB PO (16:50)
[2016-10-26] MEDS ORDERED: DSS PO (16:50)
[2016-10-26] MEDS ORDERED: PROTONIX PO (16:51)
[2016-10-26] MEDS ORDERED: SUCR PO (16:51)
[2016-10-26] MEDS ORDERED: TOUJEO SC (16:52)
[2016-10-26] MEDS ORDERED: MULTIVITAMI1 PO (16:53)
[2016-10-26] MEDS ORDERED: ULTRAM ER100 MG PO (16:55)
[2016-10-26] MEDS ORDERED: ATV1 PO (16:56)
== END 2016-06-11 13:25 | DRG 463 ==
LOC: 1SO 16:26
PROVIDERS: Internal Medicine; Internal Medicine Infectious Disease; Nurse Practitioner Gerontology; Surgery Surgery of the Hand
PROC: 0X6S0Z3 Detachment at Right Ring Finger, Low, Open Approach (ICD-10-PCS; principal; 2016-06-04 15:45)
PROC: 0HBFXZZ Excision of Right Hand Skin, External Approach (ICD-10-PCS; 2016-06-04 15:45)
PROC: 02HV33Z Insertion of Infusion Device into Superior Vena Cava, Percutaneous Approach (ICD-10-PCS; 2016-06-08)
PROC: 4A02X4A Measurement of Cardiac Electrical Activity, Guidance, External Approach (ICD-10-PCS; 2016-06-08)
PROC: B246ZZ4 Ultrasonography of Right and Left Heart, Transesophageal (ICD-10-PCS; 2016-06-09)
DX: T87.44 Infection of amputation stump, left lower extremity (principal); G93.40 Encephalopathy, unspecified; I50.22 Chronic systolic (congestive) heart failure; E11.42 Type 2 diabetes mellitus with diabetic polyneuropathy; I11.0 Hypertensive heart disease with heart failure; L03.011 Cellulitis of right finger; T31.0 Burns involving less than 10% of body surface; A49.02 Methicillin resistant Staphylococcus aureus infection, unspecified site; Y83.8 Other surgical procedures as the cause of abnormal reaction of the patient, or of later complication, without mention of misadventure at the time of the procedure; E11.65 Type 2 diabetes mellitus with hyperglycemia; E78.5 Hyperlipidemia, unspecified; E66.9 Obesity, unspecified; I25.10 Atherosclerotic heart disease of native coronary artery without angina pectoris; G47.33 Obstructive sleep apnea (adult) (pediatric); Z68.26 Body mass index [BMI] 26.0-26.9, adult; T23.041A Burn of unspecified degree of multiple right fingers (nail), including thumb, initial encounter; X15.0XXA Contact with hot stove (kitchen), initial encounter; S61.002A Unspecified open wound of left thumb without damage to nail, initial encounter; S61.001A Unspecified open wound of right thumb without damage to nail, initial encounter; B37.2 Candidiasis of skin and nail; M24.542 Contracture, left hand; M24.541 Contracture, right hand; Z79.82 Long term (current) use of aspirin; Z79.02 Long term (current) use of antithrombotics/antiplatelets; Z79.899 Other long term (current) drug therapy; Z89.512 Acquired absence of left leg below knee; Z89.511 Acquired absence of right leg below knee; Z91.81 History of falling; Z98.61 Coronary angioplasty status
CPT/HCPCS: 36569; 70450; 71010; 80048; 80053; 80061; 80202; 81001; 82043; 82140; 82607; 82746; 82962; 83036; 84145; 85025; 85652; 86140; 87040; 87077; 87086; 87186; 88305; 88311; 93005; 93312; 93320; 93325; 97110-GO; 97110-GP; 97162-GP; 97166-GO; 97168-GO; 97530-GP; 97535-GO; A9270-GY; C1751; C8929; G8978-CL-GP; G8979-CK-GP; G8987-CK-GO; G8988-CJ-GO; J2250; J3010; J3260; J3370; Q9957